=== PATIENT | male | born 1985 | race Two or more races ===

== ENCOUNTER 2023-09-13 10:58 | Inpatient (IN) | payer OTHER ==
[~2023-09-13] VITALS: Ht 177.8 cm; Wt 85.0 kg
[2023-09-13 11:48] LABS: Alanine Aminotransferase 51 U/L (7-40); Albumin 5.4 g/dL (3.2-4.8); Alkaline Phosphatase 102 U/L (46-116); Anion Gap 11 (5-15); Aspartate Aminotransferase 40 U/L (13-40); BUN/Creatinine Ratio 23.8 (10.0-20.0); Blood Urea Nitrogen 29 mg/dL (9-23); Calcium 9.8 mg/dL (8.5-10.1); Carbon Dioxide 22 mmol/L (20-30); Chloride 104 mmol/L (98-107); Glucose 101 mg/dL (74-106); Potassium 4.8 mmol/L (3.5-5.1); Sodium 137 mmol/L (136-145)
[2023-09-13 11:49] LABS: Bilirubin, Total 3.3 mg/dL (0.2-1.0); Total Protein 7.9 g/dL (5.7-8.2)
[2023-09-13 11:52] LABS: Basophils # (auto) 0 10 ^3/uL (0-0.2); Eosinophils # (auto) 0 10 ^3/uL (0-0.8); Monocytes # (auto) 0.8 10 ^3/uL (0-1.3); White Blood Cell 8.4 10^3/uL (4.4-10.8)
[2023-09-13 11:56] LABS: Basophils % (auto) 0.4 % (0.0-2.0); Hematocrit 50.8 % (41.0-53.0); Hemoglobin 17.6 g/dL (13.5-17.5); Lymphocytes # (auto) 2.1 10 ^3/uL (0.4-5.4); Lymphocytes % (auto) 24.7 % (10.0-50.0); Mean Corpuscular Hemoglobin 29.9 pg (28.0-32.0); Mean Corpuscular Hgb Conc. 34.8 g/dL (32.0-36.0); Monocytes % (auto) 9.6 % (0.0-12.0); Neutrophils # (auto) 5.5 10 ^3/uL (1.6-8.6); Neutrophils % (auto) 65.3 % (37.0-80.0); Nucleated Red Blood Cells % 0.4 %; Red Cell Distribution Width 12.7 % (11.8-14.3)
[2023-09-13] MEDS ORDERED: IOHEXOL 350 MG/ML 100ML IJ ONE (13:09)
[2023-09-13 13:17] LABS: INR 1.08 (0.9-1.15); Prothrombin Time 11.5 sec (9.3-11.8)
[2023-09-13] MEDS ORDERED: ASPirin-EC 325mg tab PO ONE (16:15)
[2023-09-13 18:00] VITALS: PULSE 76; RESP 18; O2SAT 98
[2023-09-13 18:48] LABS: Urine Bacteria FEW /hpf (None Seen); Urine Blood Negative /uL (Negative); Urine Clarity Clear (Clear); Urine Color Yellow (Yellow); Urine Mucus FEW (None Seen); Urine Protein, UAD 1+ (Negative); Urine Urobilinogen Normal (Negative); Urine WBC <1 /hpf (0 - 3); Urine pH 5.5 (5.0-8.0)
[2023-09-13 18:50] LABS: Urine Specific Gravity > 1.050 (1.001-1.035)
[2023-09-13 20:16] VITALS: PULSE 73; RESP 16; O2SAT 96
[2023-09-13] MEDS ORDERED: NITROGLYCERIN 0.4 MG SL TAB SL PRN (21:00)
[2023-09-13] MEDS ORDERED: MORPHINE SULFATE INJ 2 MG/ml SYRG IV PRN (21:00)
[2023-09-13] MEDS ORDERED: METOPROLOL TARTRATE 25 MG TAB PO SCH (21:00)
[2023-09-13] MEDS: amLODIPine BESYLATE 5 MG TAB PO SCH (21:14)
[2023-09-14] VITALS (9 sets, daily range): BP systolic 132–154; BP diastolic 74–94; PULSE 51–80; RESP 14–21; TEMP 97.5–98.5; O2SAT 93–99
[2023-09-14] MEDS: HYDROcodone-ACET 10/325MG TAB PO PRN ×4 (00:43→17:22)
[2023-09-14] MEDS ORDERED: hydrALAZINE HCL 20 MG/ML VL IV PRN (02:45)
[2023-09-14] MEDS ORDERED: LEVO25TA6 PO (02:54)
[2023-09-14] MEDS ORDERED: ATOR10TA52 PO (02:54)
[2023-09-14] MEDS ORDERED: PROP1TAB53 PO (02:54)
[2023-09-14] MEDS ORDERED: FAMO20TA10 PO (02:55)
[2023-09-14 09:23] LABS: Amphetamine Screen, Urine Neg (NEGATIVE); Benzodiazephine Screen, Urine Neg (NEGATIVE)
[2023-09-14 09:26] LABS: Barbiturate Scree,Urine Neg (NEGATIVE); Cannabinoid Screen, Urine Neg (NEGATIVE); Cocaine Screen, Urine Neg (NEGATIVE); Opiate Scree,Urine Neg (NEGATIVE); Phencyclidine Screen, Urine Neg (NEGATIVE)
[2023-09-14] MEDS ORDERED: GASTROGRAFIN 120 ML SOL ONE (10:06)
[2023-09-14] MEDS ORDERED: ADENOSINE 69 MG in GIVE UN-DILUTED 0 ML IV ONE (10:30)
[2023-09-14] MEDS: ENOXAPARIN SOD 40 MG/0.4 ML SYRINGE SC SCH (11:20)
[2023-09-14] MEDS: ASPirin 81 mg TAB PO SCH (11:21)
[2023-09-14] MEDS: METOPROLOL SUCCINATE XL 50 MG TAB PO SCH (11:21)
[2023-09-14] MEDS: amLODIPine BESYLATE 5 MG TAB PO SCH (11:22)
[2023-09-14] MEDS: ATORVASTATIN 20 MG TAB PO SCH (22:15)
[2023-09-15] VITALS (9 sets, daily range): BP systolic 112–154; BP diastolic 80–93; PULSE 47–83; RESP 16–95; TEMP 97.4–98.8; O2SAT 90–98
[2023-09-15] MEDS: HYDROcodone-ACET 10/325MG TAB PO PRN ×2 (10:19→20:51)
[2023-09-15] MEDS: amLODIPine BESYLATE 5 MG TAB PO SCH (10:19)
[2023-09-15] MEDS: ASPirin 81 mg TAB PO SCH (10:19)
[2023-09-15] MEDS: METOPROLOL SUCCINATE XL 50 MG TAB PO SCH (10:20)
[2023-09-15] MEDS: ENOXAPARIN SOD 40 MG/0.4 ML SYRINGE SC SCH (10:20)
[2023-09-15] MEDS: ATORVASTATIN 20 MG TAB PO SCH (20:50)
[2023-09-15] MEDS ORDERED: guaiFENesin-DM 100/10mg/5ml SYR PO ONE (21:15)
[2023-09-15] MEDS ORDERED: guaiFENesin-DM 100/10mg/5ml SYR PO PRN (21:15)
[2023-09-15] MEDS ORDERED: CEFTRIAXONE SODIUM 2 GM in D5W 5% 100 ML IV ONE (21:15)
[2023-09-15] MEDS ORDERED: ALBUTEROL SULF 2.5 MG/0.5ML(0.5%) NEB SOLN NEB PRN ×2 (22:00)
[2023-09-15] MEDS ORDERED: ALBUTEROL SULF 2.5 MG/0.5ML(0.5%) NEB SOLN NEB SCH (22:00)
[2023-09-15] MEDS: methylPREDNISolone SOD SUCC 40 MG/ML VL IV SCH (22:11)
[2023-09-15] MEDS ORDERED: AZITHROMYCIN 500MG/ 250ML 250 ML IV ONE (22:30)
[2023-09-16] VITALS (9 sets, daily range): BP systolic 125–148; BP diastolic 74–90; PULSE 51–76; RESP 16–21; TEMP 97.8–99.2; O2SAT 93–98
[2023-09-16] MEDS: ASPirin 81 mg TAB PO SCH (09:42)
[2023-09-16] MEDS: METOPROLOL SUCCINATE XL 50 MG TAB PO SCH (09:43)
[2023-09-16] MEDS: amLODIPine BESYLATE 5 MG TAB PO SCH (09:43)
[2023-09-16] MEDS: methylPREDNISolone SOD SUCC 40 MG/ML VL IV SCH ×2 (09:44→22:10)
[2023-09-16] MEDS: ENOXAPARIN SOD 40 MG/0.4 ML SYRINGE SC SCH (09:44)
[2023-09-16] MEDS: AZITHROMYCIN 500MG/ 250ML 250 ML IV SCH (09:45)
[2023-09-16] MEDS: CEFTRIAXONE SODIUM 2 GM in D5W 5% 100 ML IV SCH (10:54)
[2023-09-16] MEDS ORDERED: PANTOPRAZOLE 40 MG/10 ML VIAL INJ IV ONE (20:30)
[2023-09-16] MEDS: PANTOPRAZOLE 40 MG/10 ML VIAL INJ IV SCH (22:09)
[2023-09-16] MEDS: ATORVASTATIN 20 MG TAB PO SCH (22:10)
[2023-09-16] MEDS: SUCRALFATE 1 GM/10 ML ORAL SUSP PO SCH (22:10)
[2023-09-17] VITALS (7 sets, daily range): BP systolic 119–141; BP diastolic 75–95; PULSE 54–74; RESP 17–18; TEMP 96.9–98.4; O2SAT 92–98
[2023-09-17] MEDS: SUCRALFATE 1 GM/10 ML ORAL SUSP PO SCH ×4 (06:35→21:28)
[2023-09-17] MEDS: CEFTRIAXONE SODIUM 2 GM in D5W 5% 100 ML IV SCH ×2 (10:00→13:00)
[2023-09-17] MEDS: ENOXAPARIN SOD 40 MG/0.4 ML SYRINGE SC SCH (10:14)
[2023-09-17] MEDS: amLODIPine BESYLATE 5 MG TAB PO SCH (10:15)
[2023-09-17] MEDS: PANTOPRAZOLE 40 MG/10 ML VIAL INJ IV SCH ×2 (10:15→21:28)
[2023-09-17] MEDS: ASPirin 81 mg TAB PO SCH (10:15)
[2023-09-17] MEDS: METOPROLOL SUCCINATE XL 50 MG TAB PO SCH (10:15)
[2023-09-17] MEDS: methylPREDNISolone SOD SUCC 40 MG/ML VL IV SCH ×2 (10:16→21:28)
[2023-09-17] MEDS: AZITHROMYCIN 500MG/ 250ML 250 ML IV SCH (10:17)
[2023-09-17] MEDS: ATORVASTATIN 20 MG TAB PO SCH (21:28)
[2023-09-18 05:00] VITALS: BP 113/77; PULSE 51; RESP 14; TEMP 97.9; O2SAT 94
[2023-09-18] MEDS: SUCRALFATE 1 GM/10 ML ORAL SUSP PO SCH ×2 (06:05→10:21)
[2023-09-18 08:00] VITALS: PULSE 47; RESP 18; O2SAT 98
[2023-09-18 09:00] VITALS: BP 119/77; PULSE 44; RESP 19; TEMP 97.5; O2SAT 91
[2023-09-18 09:30] VITALS: O2SAT 99
[2023-09-18] MEDS: ENOXAPARIN SOD 40 MG/0.4 ML SYRINGE SC SCH (10:21)
[2023-09-18] MEDS: AZITHROMYCIN 500MG/ 250ML 250 ML IV SCH (10:21)
[2023-09-18] MEDS: methylPREDNISolone SOD SUCC 40 MG/ML VL IV SCH (10:22)
[2023-09-18] MEDS: ASPirin 81 mg TAB PO SCH (10:22)
[2023-09-18] MEDS: PANTOPRAZOLE 40 MG/10 ML VIAL INJ IV SCH (10:23)
[2023-09-18] MEDS: METOPROLOL SUCCINATE XL 50 MG TAB PO SCH (10:31)
[2023-09-18] MEDS: CEFTRIAXONE SODIUM 2 GM in D5W 5% 100 ML IV SCH (12:35)
[2023-09-18 13:00] VITALS: BP 115/84
[2023-09-18 16:50] VITALS: BP 140/89; PULSE 75; RESP 19; TEMP 98.1; O2SAT 94
== END 2023-09-18 18:00 | DRG 313 ==
LOC: ER 10:58 → EEVIPCON 10:58 → TELE 20:55 → TELE-CENTR 23:57
PROVIDERS: ADMIT Internal Medicine; ATTEND Internal Medicine
PROC: 4A02XM4 Measurement of Cardiac Total Activity, External Approach (ICD-10-PCS; principal; 2023-09-15)
PROC: 3E033HZ Introduction of Radioactive Substance into Peripheral Vein, Percutaneous Approach (ICD-10-PCS; 2023-09-15)
DX: R07.89 Other chest pain (principal); E78.5 Hyperlipidemia, unspecified; F41.9 Anxiety disorder, unspecified; I10 Essential (primary) hypertension; J45.909 Unspecified asthma, uncomplicated; F17.210 Nicotine dependence, cigarettes, uncomplicated; R79.89 Other specified abnormal findings of blood chemistry; R07.0 Pain in throat; R10.9 Unspecified abdominal pain; R74.8 Abnormal levels of other serum enzymes; R13.10 Dysphagia, unspecified
CPT/HCPCS: 36415; 70491; 71260; 74177; 74220; 78452; 80053; 80307; 81001; 84484; 85025; 85610; 93005; 93017; 93306; C9113; G0378; J0153; J0696; J7060